=== PATIENT | male | born 1995 | race African-American/Black ===

== ENCOUNTER 2016-09-21 19:58 | Emergency (ER) | payer SELFPAY ==
[2016-09-21 20:00] VITALS: BP 129/72; PULSE 55; RESP 16; TEMP 98.1; O2SAT 98
--- NOTE | 2016-09-21 21:08 | PD ---
HPI Chief Complaint: Musculoskeletal Complaint Time Seen by Provider: 21:06 Travel History International Travel<30 days: No Contact w/Intl Traveler<30days: No Traveled to known affect area: No History of Present Illness HPI 21-year-old male presents to the emergency department for evaluation of bilateral leg pain and a painless lesion on his tongue. Patient states he just noticed it. States that he has been sexually active but in the past but not for "quite some time." Denies any rash. No recent illnesses, fever, chills. No new activity or work out to cause the muscle soreness. He has no other symptoms to report. [facility] Past Medical History Medical History: Denies Significant Hx Diminished Hearing: No Seizures: Yes (LAST SEIZURE WAS 4-5 YEARS AGO ) Tetanus Vaccination: < 5 Years Past Surgical History Surgical History: No Previous Surgery Social History Alcohol Use: No Tobacco Use: No Substance Use: No Allergies-Medications (Allergen,Severity, Reaction): Coded Allergies: No Known Allergies (Unverified , 09/21/16) Reported Meds & Prescriptions Reported Meds & Active Scripts Active No Active Prescriptions or Reported Medications Review of Systems Except as stated in HPI: all other systems reviewed are Neg Physical Exam Narrative GENERAL: Well-nourished, well-developed male patient ambulatory with a nonantalgic gait no acute distress SKIN: Focused skin assessment warm/dry. HEAD: Normocephalic. ENT: Mucosa pink and moist. No erythema or exudates. No uvular edema. No uvular , palatal, or tonsillar deviation. Airway patent. Nasal turbinates appear normal without nasal blood, purulent drainage or septal hematoma. There is a oblong-shaped lesion approximately 1 cm in diameter on the right lateral aspect of the tongue. The center is depressed and the borders raised. It is painless. EYES: No scleral icterus. No injection or drainage. NECK: Supple, trachea midline. No JVD or lymphadenopathy. CARDIOVASCULAR: Regular rate and rhythm without murmurs, gallops, or rubs. RESPIRATORY: Breath sounds equal bilaterally. No accessory muscle use. GASTROINTESTINAL: Abdomen soft, non-tender, nondistended. MUSCULOSKELETAL: No cyanosis, or edema. No erythema or edema. Full range of motion all extremities. Distal pulses are palpable. BACK: Nontender without obvious deformity. No CVA tenderness. Data Data Last Documented VS Vital Signs Date Time Temp Pulse Resp B/P Pulse Ox O2 Delivery O2 Flow Rate FiO2 09/21/16 20:00 98.1 55 16 129/72 98 Room Air Orders Penicillin G Benzathine Inj (Bicillin L- (09/21/16 21:15) Rapid Plasmin Reagin Screen (09/21/16 21:04) Labs Laboratory Tests Test 09/21/16 21:18 Rapid Plasma Reagin NON-REACTIVE MDM Medical Decision Making Medical Screen Exam Complete: Yes Emergency Medical Condition: Yes Medical Record Reviewed: Yes Differential Diagnosis Syphilis versus acanthus ulcer versus trauma to the tongue Dehydration versus muscle strain versus viral syndrome Narrative Course 21-year-old male presents to emergency department for evaluation. Patient has a painless lesion on his tongue is having lower extremity joint pain. This is concerning for syphilis and RPR is sent. Patient will be treated here regardless. I have encouraged him to maintain adequate oral hydration and utilizes, prophylaxis. He is made her that we will call him with any positive results. He agrees to return immediately with any acute worsening of symptoms Diagnosis Primary Impression: Oral lesion Additional Impression: Leg pain, bilateral Referrals: [facility] Patient Instructions: General Instructions, Syphilis (ED) Additional Instructions: Lab work has been drawn today to testing for syphilis. If it is positive he will be contacted You have been treated today Follow-up with a primary care provider Return immediately with any acute worsening symptoms Med/Other Pt SpecificInfo: No Change to Meds Scripts No Active Prescriptions or Reported Meds Disposition: 01 DISCHARGE HOME Condition: Stable Susana Ahn STEFAN September 21, 2016 21:07
[2016-09-21] MEDS ORDERED: PENICILLIN G BENZATHINE 2,400,000 UNITS/4 ML SYRINGE IM ONE (21:15)
== END 2016-09-21 22:03 | disposition home or self-care (01) ==
LOC: NEPK 19:58
DX: K13.70 Unspecified lesions of oral mucosa (principal); M79.604 Pain in right leg; M79.605 Pain in left leg
CPT/HCPCS: 86592; 96372; 99283; J0561

== ENCOUNTER 2017-02-09 13:36 | Emergency (ER) | payer MEDICAID, OTHER ==
[~2017-02-09] VITALS: Ht 180.3 cm; Wt 65.0 kg
[2017-02-09 14:12] VITALS: BP 142/83; PULSE 79; RESP 18; TEMP 98.3; O2SAT 100
[2017-02-09] MEDS ORDERED: OXCA150T PO (14:17)
--- NOTE | 2017-02-09 14:41 | PD ---
HPI Chief Complaint: Seizure Time Seen by Provider: 14:24 Travel History International Travel<30 days: No Contact w/Intl Traveler<30days: No Traveled to known affect area: No History of Present Illness HPI This patient has history of epilepsy and was on seizure medication from eighth grade through 11th grade. He stopped taking his twice a day Trileptal in the 11th grade and hasn't had a seizure until today. He was in the computer lab at [facility] and had a witnessed seizure activity. He remained seated in the chair so there was no fall or injury. Paramedics were called and brought him in. Accu-Chek normal. At this point he feels improved. He was a little bit groggy when he awoke. Severity was moderate. Duration 1 minute. No alleviating factors. There were no exacerbating factors PFSH Past Medical History Diminished Hearing: No Seizures: Yes (LAST SEIZURE WAS 4-5 YEARS AGO ) ?: Not Social History Alcohol Use: No Tobacco Use: No Substance Use: Yes (THC often) Allergies-Medications (Allergen,Severity, Reaction): Coded Allergies: No Known Allergies (Unverified , 09/21/16) Reported Meds & Prescriptions Reported Meds & Active Scripts Active Reported Oxcarbazepine 150 Mg Tab 150 Mg PO BID Review of Systems General / Constitutional: No: Fever Eyes: No: Visual changes HENT: No: Headaches Cardiovascular: No: Chest Pain or Discomfort Respiratory: No: Shortness of Breath Gastrointestinal: No: Abdominal Pain Genitourinary: No: Dysuria Musculoskeletal: No: Pain Skin: No Rash Neurologic: Positive: Seizures, No: Weakness Psychiatric: No: Depression Endocrine: No: Polydipsia Hematologic/Lymphatic: No: Easy Bruising Physical Exam Narrative GENERAL: Well-nourished, well-developed patient in no apparent distress. SKIN: Focused skin assessment reveals no rash and nodules. Skin is Warm and dry. HEAD: Atraumatic. Normocephalic. EYES: Pupils equal and round. No scleral icterus. No injection or drainage. ENT: No nasal bleeding or discharge. Mucous membranes pink and moist. Small abrasion to the right side of tongue NECK: Trachea midline. No JVD. No midline tenderness CARDIOVASCULAR: Regular rate and rhythm. No murmur appreciated. RESPIRATORY: No accessory muscle use. Clear to auscultation. Breath sounds equal bilaterally. GASTROINTESTINAL: Abdomen soft, non-tender, nondistended. Hepatic and splenic margins not palpable. MUSCULOSKELETAL: No obvious deformities. No clubbing. No cyanosis. No edema. NEUROLOGICAL: Awake and alert. No obvious cranial nerve deficits. Motor grossly within normal limits. Normal speech. PSYCHIATRIC: Appropriate mood and affect; insight and judgment normal. Data Data Last Documented VS Vital Signs Date Time Temp Pulse Resp B/P (MAP) Pulse Ox O2 Delivery O2 Flow Rate FiO2 02/09/17 14:13 77 18 99 Room Air 02/09/17 14:12 98.3 142/83 (102) Orders Orders Complete Blood Count With Diff (02/09/17 14:31) Basic Metabolic Panel (Bmp) (02/09/17 14:31) Iv Access Insert/Monitor (02/09/17 14:31) Sodium Chloride 0.9% Flush (Ns Flush) (02/09/17 14:45) Lorazepam (Ativan) (02/09/17 14:45) Oxcarbazepine (Trileptal) (02/09/17 14:45) Labs Laboratory Tests Test 02/09/17 14:44 White Blood Count 4.2 TH/MM3 Red Blood Count 4.34 MIL/MM3 Hemoglobin 13.8 GM/DL Hematocrit 41.6 % Mean Corpuscular Volume 95.7 FL Mean Corpuscular Hemoglobin 31.7 PG Mean Corpuscular Hemoglobin Concent 33.1 % Red Cell Distribution Width 13.6 % Platelet Count 202 TH/MM3 Mean Platelet Volume 9.9 FL Neutrophils (%) (Auto) 59.8 % Lymphocytes (%) (Auto) 28.0 % Monocytes (%) (Auto) 9.5 % Eosinophils (%) (Auto) 1.6 % Basophils (%) (Auto) 1.1 % Neutrophils # (Auto) 2.5 TH/MM3 Lymphocytes # (Auto) 1.2 TH/MM3 Monocytes # (Auto) 0.4 TH/MM3 Eosinophils # (Auto) 0.1 TH/MM3 Basophils # (Auto) 0.0 TH/MM3 CBC Comment DIFF FINAL Differential Comment Blood Urea Nitrogen 9 MG/DL Creatinine 0.96 MG/DL Random Glucose 77 MG/DL Calcium Level 9.2 MG/DL Sodium Level 137 MEQ/L Potassium Level 4.2 MEQ/L Chloride Level 105 MEQ/L Carbon Dioxide Level 24.3 MEQ/L Anion Gap 8 MEQ/L Estimat Glomerular Filtration Rate 120 ML/MIN MDM Medical Decision Making Medical Screen Exam Complete: Yes Emergency Medical Condition: Yes Medical Record Reviewed: Yes Differential Diagnosis Recurrent seizure, epilepsy, tremor Narrative Course I have reviewed the patient's electronic medical record. Of course there is no way to be 100% certain since I was not there at the time of the event but it certainly is a convincing story for having a seizure. He did have tongue injury as well. Given his history I'm recommending we restart him on Trileptal Will start him on 300 twice a day with the expectation he may require higher dose at some point in the future. He should follow-up with neurology I will observe him for while to make sure he does not have recurrent event He is neurologically intact I gave him 0.5 mg Ativan pill CBC is normal Metabolic profile is normal Accu-Chek normal I gave him a Trileptal dose of 300 I observed him for 3 solid hours and he remains asymptomatic. Father is here to take him home. Diagnosis Primary Impression: Seizure Additional Instructions: The patient was advised to follow up with neurologist and return if they worsen. Med/Other Pt SpecificInfo: Prescription(s) given Disposition: DISCHARGE HOME Condition: Stable Melvin Delaney MD Feb 09, 2017 14:41
[2017-02-09] MEDS ORDERED: SODIUM CHLORIDE 0.9% FLUSH 10 ML FLUSH IVF PRN (14:45)
[2017-02-09] MEDS ORDERED: OXcarbazepine 300 MG TAB PO ONE (14:45)
[2017-02-09] MEDS ORDERED: LORazepam 0.5 MG TAB PO ONE (14:45)
[2017-02-09 15:13] LABS: AUTOMATED NEUTROPHIL # 2.5 TH/MM3 (1.8-7.7); BASOPHIL % 1.1 % (0.0-2.0); EOSINOPHIL # 0.1 TH/MM3 (0-0.4); EOSINOPHIL % 1.6 % (0.0-4.0); HEMATOCRIT 41.6 % (39.0-51.0); HEMO FLAGS DIFF FINAL; LYMPHOCYTE # 1.2 TH/MM3 (1.0-4.8); MEAN CELL VOLUME 95.7 FL (80.0-100.0); MEAN CORPUSCULAR HEMOGLOBIN 31.7 PG (27.0-34.0); MEAN CORPUSCULAR HGB CONC 33.1 % (32.0-36.0); MONO % 9.5 % (0.0-8.0); NEUT % 59.8 % (16.0-70.0); PLATELET COUNT 202 TH/MM3 (150-450); RED BLOOD COUNT 4.34 MIL/MM3 (4.50-5.90); RED CELL DISTRIBUTION WIDTH 13.6 % (11.6-17.2); WHITE BLOOD COUNT 4.2 TH/MM3 (4.0-11.0)
[2017-02-09 15:43] LABS: BICARBONATE 24.3 MEQ/L (21.0-32.0); POTASSIUM 4.2 MEQ/L (3.5-5.1)
--- NOTE | 2017-02-10 12:03 | EKG ---
Date Performed: 02/09/2017 Time Performed: 14:21:45 PTAGE: 21 years EKG: Sinus rhythm POSSIBLE RIGHT VENTRICULAR CONDUCTION DELAY EARLY REPOLARIZATION BORDERLINE ECG NO PREVIOUS TRACING DOCTOR: Hay Morales Interpretating Date/Time 02/10/2017 12:01:23
== END 2017-02-09 17:41 | disposition home or self-care (01) ==
LOC: NEPD 13:36
DX: R56.9 Unspecified convulsions (principal)
CPT/HCPCS: 80048; 85025; 93005; 99284

== ENCOUNTER 2017-03-20 13:10 | Inpatient (IN) | payer OTHER ==
[~2017-03-20] VITALS: Ht 180.3 cm; Wt 78.0 kg
[~2017-03-20 13:10] MED LIST: OXCA150T PO
[2017-03-20 13:21] VITALS: BP 131/87; PULSE 72; RESP 16; TEMP 97.7; O2SAT 99
[2017-03-20 13:23] VITALS: O2SAT 99
[2017-03-20] MEDS ORDERED: LORazepam 2 MG/ML VIAL ONE ×2 (13:25)
[2017-03-20] MEDS ORDERED: SODIUM CHLORIDE 0.9% FLUSH 10 ML FLUSH IVF PRN ×4 (13:30)
[2017-03-20] MEDS ORDERED: SODIUM CHLOR 0.9% 1000 ML INJ 1,000 ML IV ONE ×2 (13:30)
[2017-03-20] MEDS ORDERED: FOSPHENYTOIN INJ 1,000 MGPE in SODIUM CHLORIDE 0.9% INJ 50 ML IV ONE ×4 (13:45)
[2017-03-20 14:17] LABS: AUTOMATED NEUTROPHIL # 4.3 TH/MM3 (1.8-7.7); BASOPHIL % 0.4 % (0.0-2.0); EOSINOPHIL % 0.5 % (0.0-4.0); HEMATOCRIT 48.1 % (39.0-51.0); HEMOGLOBIN 15.4 GM/DL (13.0-17.0); LYMPH % 33.9 % (9.0-44.0); LYMPHOCYTE # 2.7 TH/MM3 (1.0-4.8); MEAN CELL VOLUME 101.8 FL (80.0-100.0); MEAN CORPUSCULAR HEMOGLOBIN 32.6 PG (27.0-34.0); MEAN PLATELET VOLUME 9.8 FL (7.0-11.0); MONO % 11.3 % (0.0-8.0); MONOCYTE # 0.9 TH/MM3 (0-0.9); NEUT % 53.9 % (16.0-70.0); PLATELET COUNT 200 TH/MM3 (150-450); RED BLOOD COUNT 4.73 MIL/MM3 (4.50-5.90); RED CELL DISTRIBUTION WIDTH 14.8 % (11.6-17.2)
[2017-03-20 14:38] LABS: BICARBONATE 14.9 MEQ/L (21.0-32.0); CALCIUM 10.6 MG/DL (8.5-10.1); CREATININE 1.24 MG/DL (0.60-1.30)
--- NOTE | 2017-03-20 15:12 | RADRPT ---
EXAM DATE/TIME: 03/20/2017 14:49 [place] COMPARISON: No previous studies available for comparison. INDICATIONS : Possible seizure today. RADIATION DOSE: 56.35 CTDIvol (mGy) MEDICAL HISTORY : Seizures. SURGICAL HISTORY : None. ENCOUNTER: Initial ACUITY: 1 day PAIN SCALE: Non-responsive LOCATION: Bilateral head TECHNIQUE: Multiple contiguous axial images were obtained of the head. Using automated exposure control and adj ustment of the mA and/or kV according to patient size, radiation dose was kept as low as reasonably a chievable to obtain optimal diagnostic quality images. DICOM format image data is available electro nically for review and comparison. FINDINGS: CEREBRUM: The ventricles are normal for age. No evidence of midline shift, mass lesion, hemorrhage or acute in farction. No extra-axial fluid collections are seen. POSTERIOR FOSSA: The cerebellum and brainstem are intact. The 4th ventricle is midline. The cerebellopontine angle i s unremarkable. EXTRACRANIAL: The visualized portion of the orbits is intact. SKULL: The calvaria is intact. No evidence of skull fracture. CONCLUSION: No acute disease. Maurizio Guaman MD on March 20, 2017 at 15:09 Board Certified Radiologist. This report was verified electronically.
--- NOTE | 2017-03-20 15:12 | PD ---
HPI Chief Complaint: Seizure Time Seen by Provider: 13:13 Travel History International Travel<30 days: No Contact w/Intl Traveler<30days: No Traveled to known affect area: No History of Present Illness HPI 21 yo M arrives by EMS. He was witnessed to have had a seizure apathy and [place]. It lasted about 2 minutes. it was generalized clonic tonic activity. Postictal state observed. Vital signs normal on scene with normal blood glucose. Patient has a history of seizures with most recent seizure about 6 weeks prior. He is currently not taking any antiepileptics however was previously. He does not recall the name of the antiepileptic agent. [facility] Past Medical History Diminished Hearing: No Seizures: Yes Tetanus Vaccination: Unknown Influenza Vaccination: No Past Surgical History Surgical History: No Previous Surgery Social History Alcohol Use: No Tobacco Use: No Substance Use: Yes (THC often) Allergies-Medications (Allergen,Severity, Reaction): Coded Allergies: No Known Allergies (Unverified Allergy, Unknown, 03/20/17) Reported Meds & Prescriptions Reported Meds & Active Scripts Active Reported Oxcarbazepine 150 Mg Tab 150 Mg PO BID Review of Systems Except as stated in HPI: all other systems reviewed are Neg General / Constitutional: No: Fever Physical Exam Narrative GENERAL: 21-year-old male well-nourished well-developed began full sentences no acute distress SKIN: Focused skin assessment warm/dry. HEAD: Atraumatic. Normocephalic. EYES: Pupils equal and round. No scleral icterus. No injection or drainage. ENT: No nasal bleeding or discharge. Mucous membranes pink and moist. NECK: Trachea midline. No JVD. CARDIOVASCULAR: Regular rate and rhythm. No murmur appreciated. RESPIRATORY: No accessory muscle use. Clear to auscultation. Breath sounds equal bilaterally. GASTROINTESTINAL: Abdomen soft, non-tender, nondistended. Hepatic and splenic margins not palpable. MUSCULOSKELETAL: No obvious deformities. No clubbing. No cyanosis. No edema. NEUROLOGICAL: Awake and alert. No obvious cranial nerve deficits. Motor grossly within normal limits. Normal speech. PSYCHIATRIC: Appropriate mood and affect; insight and judgment normal. Data Data Last Documented VS Vital Signs Date Time Temp Pulse Resp B/P (MAP) Pulse Ox O2 Delivery O2 Flow Rate FiO2 03/20/17 15:27 77 16 134/85 (101) 98 Room Air 03/20/17 13:21 97.7 Orders Orders Complete Blood Count With Diff (03/20/17 13:21) Basic Metabolic Panel (Bmp) (03/20/17 13:21) Electrocardiogram (03/20/17 ) Ecg Monitoring (03/20/17 13:21) Iv Access Insert/Monitor (03/20/17 13:21) Oximetry (03/20/17 13:21) Sodium Chloride 0.9% Flush (Ns Flush) (03/20/17 13:30) Ct Brain W/O Iv Contrast(Rout) (03/20/17 13:21) Lorazepam Inj (Ativan Inj) (03/20/17 13:25) Alcohol (Ethanol) (03/20/17 13:30) Drug Screen, Random Urine (03/20/17 13:30) Sodium Chlor 0.9% 1000 Ml Inj (Ns 1000 M (03/20/17 13:30) Sodium Chloride 0.9% Flush (Ns Flush) (03/20/17 13:30) Fosphenytoin Inj (Cerebyx Inj) (03/20/17 13:45) Admit Order (Ed Use Only) (03/20/17 ) Tie Knitter Helper / Telemetry HARLEY.Q8H (03/20/17 16:00) Vital Signs (Adult) Q4H (03/20/17 16:00) Diet Heart Healthy (03/20/17 Dinner) Activity Oob With Assistance (03/20/17 16:00) Labs Laboratory Tests Test 03/20/17 13:30 White Blood Count 8.0 TH/MM3 Red Blood Count 4.73 MIL/MM3 Hemoglobin 15.4 GM/DL Hematocrit 48.1 % Mean Corpuscular Volume 101.8 FL Mean Corpuscular Hemoglobin 32.6 PG Mean Corpuscular Hemoglobin Concent 32.0 % Red Cell Distribution Width 14.8 % Platelet Count 200 TH/MM3 Mean Platelet Volume 9.8 FL Neutrophils (%) (Auto) 53.9 % Lymphocytes (%) (Auto) 33.9 % Monocytes (%) (Auto) 11.3 % Eosinophils (%) (Auto) 0.5 % Basophils (%) (Auto) 0.4 % Neutrophils # (Auto) 4.3 TH/MM3 Lymphocytes # (Auto) 2.7 TH/MM3 Monocytes # (Auto) 0.9 TH/MM3 Eosinophils # (Auto) 0.0 TH/MM3 Basophils # (Auto) 0.0 TH/MM3 CBC Comment DIFF FINAL Differential Comment Blood Urea Nitrogen 9 MG/DL Creatinine 1.24 MG/DL Random Glucose 110 MG/DL Calcium Level 10.6 MG/DL Sodium Level 144 MEQ/L Potassium Level 3.6 MEQ/L Chloride Level 108 MEQ/L Carbon Dioxide Level 14.9 MEQ/L Anion Gap 21 MEQ/L Estimat Glomerular Filtration Rate 89 ML/MIN Urine Opiates Screen NEG Urine Barbiturates Screen NEG Urine Amphetamines Screen NEG Urine Benzodiazepines Screen NEG Urine Cocaine Screen NEG Urine Cannabinoids Screen POS Ethyl Alcohol Level LESS THAN 3 MG/DL MDM Medical Decision Making Medical Screen Exam Complete: Yes Emergency Medical Condition: Yes Medical Record Reviewed: Yes Differential Diagnosis seizure, epilepsy, drug abuse, alcohol abuse, electronimbalance Narrative Course CBC & BMP Diagram 03/20/17 13:30 Calcium Level 10.6 H Last [address] 03/20/17 1321 Signed Impressions: Service Date/Time: Monday, March 20, 2017 14:49 - CONCLUSION: No acute disease. Maurizio Guaman MD Drug screen is positive for cannabinoids The alcohol level is less than 3 The patient had a generalized clonic tonic seizure shortly after ER arrival. He received 2 mg IV Ativan. He then received a gram of Cerebyx. He'll be admitted for ongoing care including monitoring and neurology evaluation. D/w Dr Sarabia. Critical Care Narrative Aggregate critical care time was 35 minutes. Time to perform other separately billable procedures was not included in the critical care time. My time did not include minutes spent treating any other patients simultaneously or on activities that did not directly contribute to the patient's treatment. The services I provided to this patient were to treat and/or prevent clinically significant deterioration that could result in: Respiratory arrest, status epilepticus I provided critical care services requiring my management, as noted below: Chart data review, documentation time, medication orders and management, vital sign assessments/reviewing monitor data, ordering and reviewing lab tests, ordering and interpreting/reviewing x-rays and diagnostic studies, care of the patient and discussion of the patient with the admitting physicians. Diagnosis Primary Impression: Seizure Admitting Information Admitting Physician Requests: Observation Earle Bergeron MD Mar 20, 2017 15:12
[2017-03-20 15:27] VITALS: BP 134/85; PULSE 77; RESP 16; O2SAT 98
[2017-03-20] MEDS ORDERED: NALOXONE HCL 0.4 MG/ML AMP IV PUSH PRN ×2 (16:15)
[2017-03-20] MEDS ORDERED: SODIUM CHLORIDE 0.9% FLUSH 10 ML FLUSH IV FLUSH PRN ×2 (16:15)
[2017-03-20] MEDS ORDERED: LORazepam 2 MG/ML VIAL IV PUSH PRN ×2 (16:15)
[2017-03-20] MEDS: SODIUM CHLOR 0.9% 1000 ML INJ 1,000 ML IV SCH ×2 (16:38)
--- NOTE | 2017-03-20 16:59 | HHI.HP ---
HPI Service [facility] Primary Care Physician No Primary Care Physician Admission Diagnosis Recurrent Seizure Diagnoses: Chief Complaint: seizure Travel History International Travel<30 Days: No Contact w/Intl Traveler <30 Da: No Traveled to Known Affected Are: No History of Present Illness This is a 21 year old -Azerbaijani male patient with past medical history which includes seizure disorder. Patient reports he had his first seizure when he was in 8th grade and was started on seizure medications believed to be Trileptal which he took up until the 11th grade and had no further seizures. Patient reports he stopped taking his Trileptal in the 11th grade and has not taken any medications for seizures since that time. Patient does report he had a seizure approximately one month ago. In review of medical records patient was seen in the ER at 02/09/2017 for possible seizure and discharged home with instructions to follow-up with neurology. Patient reports you tries to find a neurologist but has been unable to do so. Patient also has not been on medications for seizures. Patient had witnessed seizure today while in the computer lab at [facility] in the computer lab. He remained seated in the chair so there was no fall or injury. Paramedics were called and brought him into [facility] ER. Per ER MD patient had a second witnessed seizure while in the ER duration 1 minute. seizure activity resolved after Ativan was given IV. Blood glucose on arrival 110. Patient deepak appear post-ictal and endorses feeling groggy. Patient reports he did have the feeling that a mild headache was starting just prior to the seizure activity. Patient denies lose of bowel or bladder control. Review of Systems Neurologic: COMPLAINS OF: Headache, Seizures Except as stated in HPI: all other systems reviewed are Neg Past Family Social History Past Medical History seizure disorder Past Surgical History none Reported Medications none Allergies: Coded Allergies: No Known Allergies (Unverified Allergy, Unknown, 03/20/17) Active Ordered Medications Current Medications Medications (Trade) Dose Ordered Sig/Quincy Route Start Time Stop Time Status Last Admin Sodium Chloride 1,000 ml @ 100 mls/hr Q10H IV 03/20/17 16:03 (NS Flush) 2 ml UNSCH PRN IV FLUSH 03/20/17 16:15 (NS Flush) 2 ml BID IV FLUSH 03/20/17 21:00 (Narcan Inj) 0.4 mg UNSCH PRN IV PUSH 03/20/17 16:15 (Ativan Inj) 1 mg Q15M PRN IV PUSH 03/20/17 16:15 Family History Grandmother positive for lung Ca Social History Lives on [place] at [facility] from [place] denies tobacco use rare ETOH use last drank over 2 months ago illicit drug use: marijuana Physical Exam Vital Signs Vital Signs Date Time Temp Pulse Resp B/P (MAP) Pulse Ox O2 Delivery O2 Flow Rate FiO2 03/20/17 15:27 77 16 134/85 (101) 98 Room Air 03/20/17 13:23 99 Room Air 03/20/17 13:21 97.7 72 16 131/87 (102) 99 Room Air Physical Exam GENERAL: This is a well-nourished, well-developed patient, in no apparent distress. SKIN: No rashes, ecchymoses or lesions. Cool and dry. HEAD: Atraumatic. Normocephalic. No temporal or scalp tenderness. EYES: Extraocular motions intact. No scleral icterus. No injection or drainage. CARDIOVASCULAR: Regular rate and rhythm RESPIRATORY: Clear to auscultation. Breath sounds equal bilaterally. GASTROINTESTINAL: Abdomen soft, non-tender, nondistended. No hepato-splenomegaly , or palpable masses. No guarding. MUSCULOSKELETAL: Extremities without clubbing, cyanosis, or edema. No joint tenderness, effusion, or edema noted. No calf tenderness. Negative Homans sign bilaterally. NEUROLOGICAL: Groggy/post-ictal. No focal deficits noted. Motor and sensory grossly within normal limits. Five out of 5 muscle strength in all muscle groups. Normal speech. Laboratory Laboratory Tests Test 03/20/17 13:30 White Blood Count 8.0 Red Blood Count 4.73 Hemoglobin 15.4 Hematocrit 48.1 Mean Corpuscular Volume 101.8 Mean Corpuscular Hemoglobin 32.6 Mean Corpuscular Hemoglobin Concent 32.0 Red Cell Distribution Width 14.8 Platelet Count 200 Mean Platelet Volume 9.8 Neutrophils (%) (Auto) 53.9 Lymphocytes (%) (Auto) 33.9 Monocytes (%) (Auto) 11.3 Eosinophils (%) (Auto) 0.5 Basophils (%) (Auto) 0.4 Neutrophils # (Auto) 4.3 Lymphocytes # (Auto) 2.7 Monocytes # (Auto) 0.9 Eosinophils # (Auto) 0.0 Basophils # (Auto) 0.0 CBC Comment DIFF FINAL Differential Comment Blood Urea Nitrogen 9 Creatinine 1.24 Random Glucose 110 Calcium Level 10.6 Sodium Level 144 Potassium Level 3.6 Chloride Level 108 Carbon Dioxide Level 14.9 Anion Gap 21 Estimat Glomerular Filtration Rate 89 Urine Opiates Screen NEG Urine Barbiturates Screen NEG Urine Amphetamines Screen NEG Urine Benzodiazepines Screen NEG Urine Cocaine Screen NEG Urine Cannabinoids Screen POS Ethyl Alcohol Level LESS THAN 3 Result Diagram: 03/20/17 1330 03/20/17 1330 Imaging Last Impressions Head CT 03/20/17 1321 Signed Impressions: Service Date/Time: Monday, March 20, 2017 14:49 - CONCLUSION: No acute disease. MD Isabel Jefferson VTE Risk Assessment Captodd VTE Risk Assessment: No/Low Risk (score <= 1) Caprini Risk Assessment Model Point Value = 1 Point Value = 2 Point Value = 3 Point Value = 5 Age 41-60 Minor surgery BMI > 25 kg/m2 Swollen legs Varicose veins or History of unexplained or recurrent spontaneous Oral contraceptives or hormone replacement Sepsis (< 1 month) Serious lung disease, including pneumonia (< 1 month) Abnormal pulmonary function Acute myocardial infarction Congestive heart failure (< 1 month) History of inflammatory bowel disease Medical patient at bed rest Age 61-74 Arthroscopic surgery Major open surgery (> 45 min) Laparoscopic surgery (> 45 min) Malignancy Confined to bed (> 72 hours) Immobilizing plaster cast Central venous access Age >= 75 History of VTE Family history of VTE Factor V Leiden Prothrombin [id number] Lupus anticoagulant Anticardiolipin antibodies Elevated serum homocysteine Heparin-induced thrombocytopenia Other congenital or acquired thrombophilia Stroke (< 1 month) Elective arthroplasty Hip, pelvis, or leg fracture Acute spinal cord injury (< 1 month) Prophylaxis Regimen Total Risk Factor Score Risk Level Prophylaxis Regimen 0-1 Low Early ambulation 2 Moderate Order ONE of the following: *Sequential Compression Device (SCD) *Heparin 5000 units SQ BID 3-4 Higher Order ONE of the following medications: *Heparin 5000 units SQ TID *Enoxaparin/Lovenox 40 mg SQ daily (WT < 150 kg, CrCl > 30 mL/min) *Enoxaparin/Lovenox 30 mg SQ daily (WT < 150 kg, CrCl > 10-29 mL/min) *Enoxaparin/Lovenox 30 mg SQ BID (WT < 150 kg, CrCl > 30 mL/min) AND/OR *Sequential Compression Device (SCD) 5 or more Highest Order ONE of the following medications: *Heparin 5000 units SQ TID (Preferred with Epidurals) *Enoxaparin/Lovenox 40 mg SQ daily (WT < 150 kg, CrCl > 30 mL/min) *Enoxaparin/Lovenox 30 mg SQ daily (WT < 150 kg, CrCl > 10-29 mL/min) *Enoxaparin/Lovenox 30 mg SQ BID (WT < 150 kg, CrCl > 30 mL/min) AND *Sequential Compression Device (SCD) Assessment and Plan Problem List: (1) Seizure ICD Code: R56.9 - Unspecified convulsions Status: Acute Assessment and Plan Seizure Fosphenytoin given in ER Ativan as needed for seizure activity Consult neurology Head CT reviewed and reveals: No acute disease EEG pending Seizure precautions Start Dilantin 100 mg Q8H with Dilantin level in AM CBC and CMP in AM DVT prophylaxis SCDs- avoid chemical DVT prophylaxis due to seizure activity Discussed with patient, sister at bedside, nurse and Dr. Sarabia Physician Certification 2 Midnight Certification Type: Admission for Inpatient Services Order for Inpatient Services The services are ordered in accordance with Medicare regulations or non- Medicare payer requirements, as applicable. In the case of services not specified as inpatient-only, they are appropriately provided as inpatient services in accordance with the 2-midnight benchmark. Estimated LOS (days): 3 days is the estimated time the patient will need to remain in the hospital, assuming treatment plan goals are met and no additional complications. Post-Hospital Plan: Home Dinora Dunham Mar 20, 2017 16:59
[2017-03-20 17:30] VITALS: BP 131/83; PULSE 71; RESP 15; O2SAT 98
[2017-03-20 19:00] VITALS: BP 129/60; PULSE 61; RESP 16; TEMP 98.4; O2SAT 97
--- NOTE | 2017-03-20 20:44 | MB ---
cc: LAURA RESENDIZ MD DATE OF CONSULTATION 03/20/17 REASON FOR CONSULTATION Seizures HISTORY OF PRESENT ILLNESS Mr. Schwartz is a 21-year-old -Sammarinese male who presented to the [facility] emergency room because of a breakthrough seizure. The patient is asleep during the encounter status post being given Ativan. Sister is at bedside. The history is obtained from medical records, sister and a phone conference with his mother. He has from [place] and he is studying here in [employer]. The patient has had his first seizure when he was in high as per mother and first medication was trileptal. Hr took it for three years, seizure- free and then he stopped taking this medication. As per the sister, the patient has had a seizure one month ago. The patient did not follow up with neurology, currently on no anti-seizure medication. The patient had a witnessed seizure today while in the computer lab in the [facility]. During the episode, he remained seated so there was no fall or injury. Per the emergency room physician, he had a second witnessed seizure while in the emergency room, lasted almost a minute and Ativan IV was given. The blood glucose on arrival was 110, blood pressure 131/87, heart rate 72, temperature 97.7 and pulse ox 99. There was no reported loss of bowel or bladder control. During the phone conference with the mother, she denied history of intra intrauterine infection, abnormal vagina delivery but she states that he was in the intensive care for a week after he was born because of fluctuation in his blood sugar. She does not know what the diagnosis was. Denies history of meningitis or encephalitis. Denied history of delayed milestones, although she states that he has some "nerve injury" in his face after the ICU admission when he was an infant. No family member with seizures. No history of significant head trauma. REVIEW OF SYSTEMS 12-point review of systems negative except what is stated in HPI. PAST MEDICAL HISTORY Seizure disorder. PAST SURGICAL HISTORY Noncontributory MEDICATIONS None. ALLERGIES No known allergies. FAMILY HISTORY Noncontributory SOCIAL HISTORY Denies tobacco, rare ethanol use, illicit drug positive for marijuana. PHYSICAL EXAMINATION GENERAL: The patient is sleepy but arousable secondary to receiving 1 mg Ativan. HEENT: Atraumatic, normocephalic. Intact hearing. Intact vision. CARDIOVASCULAR: Regular rate and rhythm. RESPIRATORY: Clear to auscultation. No wheezes. MUSCULOSKELETAL: Moves extremities without clubbing or cyanosis. NEUROLOGIC: The patient is sleepy. We will defer the assessment after he wakes up, he moves extremities equally and when he turns in bed no sign of facial asymmetry. LABORATORY DATA WBC eight, hemoglobin 15.4, MCV 101.8, platelet count 200. Sodium 144, potassium 3.6, anion gap 21, random glucose 110, calcium 10.6. UDS is positive for cannabinoids. IMAGING STUDIES - Head CT scan without contrast did not reveal any acute intracranial pathology. DIAGNOSTIC IMPRESSION 1. Breakthrough seizure. 2. History of seizure disorder since childhood, currently on no anti-seizure medication. 3. Neuro checks q. four hourly. 4. EEG 5. Dilantin 100 mg three times daily 6. Obtain Dilantin level next a.m. 7. Seizure precautions. 8. DVT prophylaxis with SCDs 9. Discussed the case with the patient's sister and mother through a phone conference. Thank you for the opportunity to participate in the care of your patient. MD RIGOBERTO Colvin/ /8:21 PM /8:34 PM [facility]
--- NOTE | 2017-03-20 20:44 | MB ---
cc: LAURA RESENDIZ MD DATE OF CONSULTATION 03/20/17 REASON FOR CONSULTATION Seizures HISTORY OF PRESENT ILLNESS Mr. Schwartz is a 21-year-old -Panamanian male who presented to the [facility] emergency room because of a breakthrough seizure. The patient is asleep during the encounter status post being given Ativan. Sister is at bedside. The history is obtained from medical records, sister and a phone conference with his mother. He has from [place] and he is studying here in [employer]. The patient has had his first seizure when he was in high as per mother and first medication was trileptal. Hr took it for three years, seizure- free and then he stopped taking this medication. As per the sister, the patient has had a seizure one month ago. The patient did not follow up with neurology, currently on no anti-seizure medication. The patient had a witnessed seizure today while in the computer lab in the [facility]. During the episode, he remained seated so there was no fall or injury. Per the emergency room physician, he had a second witnessed seizure while in the emergency room, lasted almost a minute and Ativan IV was given. The blood glucose on arrival was 110, blood pressure 131/87, heart rate 72, temperature 97.7 and pulse ox 99. There was no reported loss of bowel or bladder control. During the phone conference with the mother, she denied history of intra intrauterine infection, abnormal vagina delivery but she states that he was in the intensive care for a week after he was born because of fluctuation in his blood sugar. She does not know what the diagnosis was. Denies history of meningitis or encephalitis. Denied history of delayed milestones, although she states that he has some "nerve injury" in his face after the ICU admission when he was an infant. No family member with seizures. No history of significant head trauma. REVIEW OF SYSTEMS 12-point review of systems negative except what is stated in HPI. PAST MEDICAL HISTORY Seizure disorder. PAST SURGICAL HISTORY Noncontributory MEDICATIONS None. ALLERGIES No known allergies. FAMILY HISTORY Noncontributory SOCIAL HISTORY Denies tobacco, rare ethanol use, illicit drug positive for marijuana. PHYSICAL EXAMINATION GENERAL: The patient is sleepy but arousable secondary to receiving 1 mg Ativan. HEENT: Atraumatic, normocephalic. Intact hearing. Intact vision. CARDIOVASCULAR: Regular rate and rhythm. RESPIRATORY: Clear to auscultation. No wheezes. MUSCULOSKELETAL: Moves extremities without clubbing or cyanosis. NEUROLOGIC: The patient is sleepy. We will defer the assessment after he wakes up, he moves extremities equally and when he turns in bed no sign of facial asymmetry. LABORATORY DATA WBC eight, hemoglobin 15.4, MCV 101.8, platelet count 200. Sodium 144, potassium 3.6, anion gap 21, random glucose 110, calcium 10.6. UDS is positive for cannabinoids. IMAGING STUDIES - Head CT scan without contrast did not reveal any acute intracranial pathology. DIAGNOSTIC IMPRESSION 1. Breakthrough seizure. 2. History of seizure disorder since childhood, currently on no anti-seizure medication. 3. Neuro checks q. four hourly. 4. EEG 5. Dilantin 100 mg three times daily 6. Obtain Dilantin level next a.m. 7. Seizure precautions. 8. DVT prophylaxis with SCDs 9. Discussed the case with the patient's sister and mother through a phone conference. Thank you for the opportunity to participate in the care of your patient. MD RIGOBERTO Colvin/ /8:21 PM /8:34 PM [facility]
[2017-03-20] MEDS ORDERED: SODIUM CHLORIDE 0.9% FLUSH 10 ML FLUSH IV FLUSH SCH ×2 (21:00)
[2017-03-20] MEDS: PHENYTOIN SODIUM 100 MG CAP PO SCH ×2 (23:02)
[2017-03-21] VITALS: BP 114/61; PULSE 66; RESP 16; TEMP 98.3; O2SAT 97
[2017-03-21 02:24] VITALS: PULSE 64
[2017-03-21 04:00] VITALS: BP 122/64; PULSE 66; RESP 16; TEMP 98.4; O2SAT 98
[2017-03-21] MEDS: PHENYTOIN SODIUM 100 MG CAP PO SCH ×2 (05:49)
[2017-03-21] MEDS: SODIUM CHLOR 0.9% 1000 ML INJ 1,000 ML IV SCH ×2 (05:50)
[2017-03-21 08:00] VITALS: BP 110/60; PULSE 65; RESP 18; TEMP 97.7; O2SAT 99
--- NOTE | 2017-03-21 10:15 | HHI.PR ---
Subjective Remarks Patient seen and examined this morning. His vitals are stable and the patient' s afebrile. No overnight events. Wants to go back to school. No further seizures. Denies difficulty breathing or chest pain. Objective Vital Signs Date Time Temp Pulse Resp B/P (MAP) Pulse Ox O2 Delivery O2 Flow Rate FiO2 03/21/17 08:00 97.7 65 18 110/60 (77) 99 03/21/17 04:00 98.4 66 16 122/64 (83) 98 03/21/17 02:24 64 03/21/17 00:00 98.3 66 16 114/61 (78) 97 03/20/17 19:00 98.4 61 16 129/60 (83) 97 03/20/17 18:23 03/20/17 17:30 71 15 131/83 (99) 98 Room Air 03/20/17 15:27 77 16 134/85 (101) 98 Room Air 03/20/17 13:23 99 Room Air 03/20/17 13:21 97.7 72 16 131/87 (102) 99 Room Air I/O 03/20/17 03/20/17 03/20/17 03/21/17 03/21/17 03/21/17 07:00 15:00 23:00 07:00 15:00 23:00 Intake Total 1070 ml 80 ml 1004 ml Balance 1070 ml 80 ml 1004 ml Intake Oral 80 ml 60 ml IV Total 1070 ml 944 ml # Voids 1 Result Diagram: 03/20/17 1330 03/20/17 1330 Imaging Last Impressions Head CT 03/20/17 1321 Signed Impressions: Service Date/Time: Monday, March 20, 2017 14:49 - CONCLUSION: No acute disease. Maurizio Guaman MD Objective Remarks GENERAL: sitting in bed, nad SKIN: Warm and dry. HEAD: Normocephalic. EYES: No scleral icterus. No injection or drainage. NECK: Supple, trachea midline. No JVD or lymphadenopathy. CARDIOVASCULAR: Regular rate and rhythm without murmurs, gallops, or rubs. RESPIRATORY: Breath sounds equal bilaterally. No accessory muscle use. GASTROINTESTINAL: Abdomen soft, non-tender, nondistended. MUSCULOSKELETAL: No cyanosis, or edema. BACK: Nontender without obvious deformity. No CVA tenderness. A/P Problem List: (1) Seizure ICD Code: R56.9 - Unspecified convulsions Status: Acute Assessment and Plan In summary this is a 21-year-old male's patient who is a student at [employer]. He has a medical history significant for seizure disorder for which he was previously on on Trileptal (has been off since the ). He had a witnessed seizure at school and was then brought to [place] ER. He again had a second witnessed seizure while in the ER that resolved with IV Ativan. Drug screen positive for cannabinoids. 1. Seizure: Neurology was consulted. EEG performed and read. Recommend Keppra 500 mg PO BID. Seizure precautions on dc. Fluids: Hep-Lock IV Electrolytes: Within normal limits Nutrition: Regular diet as tolerated DVT prophylaxis, patient is ambulatory Discharge Planning D/C home. FU with PCP and neuro. D.C on keppra after observed for two hours after first dose. Discussed with neuro. Sendy Sahu MD Mar 21, 2017 10:15
--- NOTE | 2017-03-21 11:54 | MG ---
cc: LAURA RESENDIZ Lab No: Date: 03/21/17 Age: 21 Sex: M Race: DATE OF [address] Sarabia MEDICAL HISTORY Seizure activity lasting 2 minutes with postictal state. History of seizure, marijuana use, caffeine and headaches. MEDICATIONS 1. Dilantin. 2. Fosphenytoin. 3. 2 milligrams of Ativan at 13:39 p.m. on 03/20. DESCRIPTION The background activity is 8-9 Hz alpha located posteriorly, bilateral and symmetrical. Superimposed by excess beta activity. Hyperventilation did not change the background rhythm. Photic stimulation did not elicit a driving response. During the recording there was drop out of the background rhythm with replacement slow theta with appearance of sleep spindles. There were no electrographic seizures or epileptiform discharges noted. INTERPRETATION This is a normal awake, drowsy and sleep EEG. Beta activity is a nonspecific finding that may be related to adverse effect of medication like benzos or barbiturates. Absence of electrographic seizures or epileptiform discharges does not rule out the diagnosis of epilepsy. Clinical correlation is recommended. MD RIGOBERTO Colvin/EVELINA /10:08 AM /11:52 AM [facility]
[2017-03-21 12:00] VITALS: BP 109/62; PULSE 68; RESP 16; TEMP 98.2; O2SAT 95
[2017-03-21 12:31] LABS: AUTOMATED NEUTROPHIL # 5.6 TH/MM3 (1.8-7.7); BASOPHIL % 0.5 % (0.0-2.0); EOSINOPHIL % 0.2 % (0.0-4.0); HEMATOCRIT 42.7 % (39.0-51.0); HEMOGLOBIN 14.2 GM/DL (13.0-17.0); LYMPH % 14.4 % (9.0-44.0); MEAN CELL VOLUME 96.7 FL (80.0-100.0); MEAN CORPUSCULAR HEMOGLOBIN 32.2 PG (27.0-34.0); MEAN CORPUSCULAR HGB CONC 33.3 % (32.0-36.0); MEAN PLATELET VOLUME 9.4 FL (7.0-11.0); MONO % 7.5 % (0.0-8.0); MONOCYTE # 0.5 TH/MM3 (0-0.9); NEUT % 77.4 % (16.0-70.0); PLATELET COUNT 173 TH/MM3 (150-450); RED BLOOD COUNT 4.41 MIL/MM3 (4.50-5.90); RED CELL DISTRIBUTION WIDTH 14.4 % (11.6-17.2); WHITE BLOOD COUNT 7.3 TH/MM3 (4.0-11.0)
--- NOTE | 2017-03-21 12:31 | HHI.PR ---
Review/Management Diagnosis 1. Breakthrough seizure. 2. History of seizure disorder since childhood, currently on no anti-seizure medication. Plan - Stable neurologic exam, non focal No acute abnormality in the neurologic investigations I explained to the patient that he needs to be on joint terminal attack controller seizure medication Dilantin would not be the choice at this time Keppra 500mg Q12h Seizure precautions Discussed case with attending physician and RN Patient tried to call his mother several times in order for me to speak with her and discuss plan of care, but no avail. Diagnosis/Plan: Subjective Subjective Comments No acute events reported No reported seizure activity Head CT scan is unremarkable EEG with no evidence of an ictal activity Patient denies any complaints, slept well No family at bed side Active Medications Current Medications Medications (Trade) Dose Ordered Sig/Qu[place]cy Route Start Time Stop Time Status Last Admin Sodium Chloride 1,000 ml @ 100 mls/hr Q10H IV 03/20/17 16:03 03/21/17 05:50 (NS Flush) 2 ml UNSCH PRN IV FLUSH 03/20/17 16:15 (NS Flush) 2 ml BID IV FLUSH 03/20/17 21:00 03/20/17 21:00 (Narcan Inj) 0.4 mg UNSCH PRN IV PUSH 03/20/17 16:15 (Ativan Inj) 1 mg Q15M PRN IV PUSH 03/20/17 16:15 (Dilantin) 100 mg Q8HR PO 03/20/17 22:00 03/21/17 05:49 Allergies Allergies Coded Allergies No Known Allergies (Unverified Allergy, Unknown, 03/20/17) Review of Systems All other ROS: ROS reviewed as documented in chart Exam I&O / VS Vital Signs Date Time Temp Pulse Resp B/P (MAP) Pulse Ox O2 Delivery O2 Flow Rate FiO2 03/21/17 12:00 98.2 68 16 109/62 (78) 95 03/21/17 08:00 97.7 65 18 110/60 (77) 99 03/21/17 04:00 98.4 66 16 122/64 (83) 98 03/21/17 02:24 64 03/21/17 00:00 98.3 66 16 114/61 (78) 97 03/20/17 19:00 98.4 61 16 129/60 (83) 97 03/20/17 18:23 03/20/17 17:30 71 15 131/83 (99) 98 Room Air 03/20/17 15:27 77 16 134/85 (101) 98 Room Air 03/20/17 13:23 99 Room Air 03/20/17 13:21 97.7 72 16 131/87 (102) 99 Room Air General: Alert and Oriented, No acute distress Eye: PERRL, EOMI, Normal conjuctiva Respiratory: Lungs CTA, Non-labored respirations Cardiology: Normal rate, No murmur Neurologic: Alert, Oriented, Normal sensory, Normal motor, No focal defects, CN II-XII intact, Normal DTR's Psychiatric: Cooperative, Appropriate mood & affect Objective Radiology Results Last [address] 03/20/17 1321 Signed Impressions: Service Date/Time: Monday, March 20, 2017 14:49 - CONCLUSION: No acute disease. Maurizio Guaman MD Micro and Labs Laboratory Tests Test 03/20/17 13:30 White Blood Count 8.0 Red Blood Count 4.73 Hemoglobin 15.4 Hematocrit 48.1 Mean Corpuscular Volume 101.8 Mean Corpuscular Hemoglobin 32.6 Mean Corpuscular Hemoglobin Concent 32.0 Red Cell Distribution Width 14.8 Platelet Count 200 Mean Platelet Volume 9.8 Neutrophils (%) (Auto) 53.9 Lymphocytes (%) (Auto) 33.9 Monocytes (%) (Auto) 11.3 Eosinophils (%) (Auto) 0.5 Basophils (%) (Auto) 0.4 Neutrophils # (Auto) 4.3 Lymphocytes # (Auto) 2.7 Monocytes # (Auto) 0.9 Eosinophils # (Auto) 0.0 Basophils # (Auto) 0.0 CBC Comment DIFF FINAL Differential Comment Blood Urea Nitrogen 9 Creatinine 1.24 Random Glucose 110 Calcium Level 10.6 Sodium Level 144 Potassium Level 3.6 Chloride Level 108 Carbon Dioxide Level 14.9 Anion Gap 21 Estimat Glomerular Filtration Rate 89 Urine Opiates Screen NEG Urine Barbiturates Screen NEG Urine Amphetamines Screen NEG Urine Benzodiazepines Screen NEG Urine Cocaine Screen NEG Urine Cannabinoids Screen POS Ethyl Alcohol Level LESS THAN 3 Yohan Schneider MD Mar 21, 2017 12:31
[2017-03-21] MEDS ORDERED: OXCA150T PO ×2 (12:44)
--- NOTE | 2017-03-21 12:45 | HHI.DCPOC ---
Discharge Care Plan Diagnosis: (1) Seizure Goals to Promote Your Health * To prevent worsening of your condition and complications * To maintain your health at the optimal level Directions to Meet Your Goals Take your medications as prescribed Follow your dietary instruction Follow activity as directed Keep your appointments as scheduled Take your immunizations and boosters as scheduled If your symptoms worsen call your PCP, if no PCP go to Urgent Care Center or Emergency Room Smoking is Dangerous to Your Health. Avoid second hand smoke Call the 24-hour hour crisis hotline for domestic abuse at Sendy Sahu MD Mar 21, 2017 12:45
--- NOTE | 2017-03-21 12:45 | HHI.DCPOC ---
Discharge Care Plan Diagnosis: (1) Seizure Goals to Promote Your Health * To prevent worsening of your condition and complications * To maintain your health at the optimal level Directions to Meet Your Goals Take your medications as prescribed Follow your dietary instruction Follow activity as directed Keep your appointments as scheduled Take your immunizations and boosters as scheduled If your symptoms worsen call your PCP, if no PCP go to Urgent Care Center or Emergency Room Smoking is Dangerous to Your Health. Avoid second hand smoke Call the 24-hour hour crisis hotline for domestic abuse at Sendy Sahu MD Mar 21, 2017 12:45
--- NOTE | 2017-03-21 12:45 | HHI.DCPOC ---
Discharge Care Plan Diagnosis: (1) Seizure Goals to Promote Your Health * To prevent worsening of your condition and complications * To maintain your health at the optimal level Directions to Meet Your Goals Take your medications as prescribed Follow your dietary instruction Follow activity as directed Keep your appointments as scheduled Take your immunizations and boosters as scheduled If your symptoms worsen call your PCP, if no PCP go to Urgent Care Center or Emergency Room Smoking is Dangerous to Your Health. Avoid second hand smoke Call the 24-hour hour crisis hotline for domestic abuse at Sendy Sahu MD Mar 21, 2017 12:45
[2017-03-21] MEDS ORDERED: LEVE500 PO ×2 (12:56)
[2017-03-21] MEDS ORDERED: levETIRAcetam 500 MG TAB PO SCH ×2 (13:00)
[2017-03-21 13:11] LABS: ALBUMIN 3.4 GM/DL (3.4-5.0); ALKALINE PHOSPHATASE 70 U/L (45-117); ALT (GPT) 18 U/L (12-78); AST (GOT) 24 U/L (15-37); BICARBONATE 27.1 MEQ/L (21.0-32.0); BLOOD UREA NITROGEN 8 MG/DL (7-18); CALCIUM 8.7 MG/DL (8.5-10.1); CHLORIDE 105 MEQ/L (98-107); GLOMERULAR FILTRATION RATE 114 ML/MIN (>89); GLUCOSE,RANDOM 108 MG/DL (74-106); PHENYTOIN (DILANTIN) 13.9 MCG/ML (10.0-20.0); SODIUM (NA) 139 MEQ/L (136-145); TOTAL BILIRUBIN ADULT 0.5 MG/DL (0.2-1.0); TOTAL PROTEIN 6.5 GM/DL (6.4-8.2)
--- NOTE | 2017-03-22 08:54 | EKG ---
Date Performed: 03/20/2017 Time Performed: 13:34:07 PTAGE: 21 years EKG: Sinus rhythm POSSIBLE RIGHT ATRIAL ENLARGEMENT POSSIBLE LEFT ATRIAL ENLARGEMENT NONSPECIFIC T-WAVE ABNORMALITY Co mpared to prior tracing no significant change BORDERLINE ECG PREVIOUS TRACING : 02/09/17 @ 1421 DOCTOR: Ravindra Barr Interpretating Date/Time 03/22/2017 08:53:13
== END 2017-03-21 16:15 | disposition home or self-care (01) | DRG 101 ==
LOC: NEPC 13:10 → NEDA 16:03 → OBSVTOIN 16:03 → N05B 18:27
PROVIDERS: ADMIT Family Medicine; ATTEND Family Medicine
DX: G40.909 Epilepsy, unspecified, not intractable, without status epilepticus (principal)
CPT/HCPCS: 70450; 80048; 80053; 80185; 80307; 85025; 93005; 95819; J2060; J7030; Q2009

== ENCOUNTER 2017-08-07 00:54 | Emergency (ER) | payer SELFPAY ==
[~2017-08-07] VITALS: Ht 193 cm; Wt 80.0 kg
[~2017-08-07 00:54] MED LIST changes: +LEVE500 PO; -OXCA150T PO
[2017-08-07 01:00] VITALS: BP 124/69; PULSE 59; RESP 18; TEMP 97.6; O2SAT 99
--- NOTE | 2017-08-07 04:07 | PD ---
HPI Chief Complaint: Laceration/Skin Injury Time Seen by Provider: 03:30 Travel History International Travel<30 days: No Contact w/Intl Traveler<30days: No Traveled to known affect area: No History of Present Illness HPI 21-year-old black male presents emergency department for evaluation of a lip laceration which he sustained this evening around 10:00 playing basketball. He states that he was accidentally elbowed in the mouth. He denies syncope. No dental injury. Pain is mild. Up-to-date with immunizations. Worsened by trauma. No alleviating factor. PFSH Past Medical History Medical History: Denies Significant Hx Cancer: No Cardiovascular Problems: No Diminished Hearing: No Endocrine: No Genitourinary: No Immune Disorder: No Musculoskeletal: No Psychiatric: No Reproductive: No Respiratory: No Immunizations Current: Yes Seizures: Yes Tetanus Vaccination: < 5 Years Influenza Vaccination: No Past Surgical History Surgical History: No Previous Surgery Social History Alcohol Use: No Tobacco Use: No Substance Use: Yes Allergies-Medications (Allergen,Severity, Reaction): Coded Allergies: No Known Allergies (Unverified Allergy, Unknown, 08/07/17) Reported Meds & Prescriptions Reported Meds & Active Scripts Active Keppra (Levetiracetam) 500 Mg Tab 500 Mg PO BID Review of Systems Except as stated in HPI: all other systems reviewed are Neg Physical Exam Narrative GENERAL: Well-developed, well-nourished in no apparent distress. Nontoxic appearing. HEAD: Normocephalic, 1 cm laceration to left upper lip with some mild swelling. There is abrasions to the buccal mucosa and wet Tam of the lip. No through and through injury. EYES: Pupils equal round and reactive. Extraocular motions intact. No scleral icterus. No injection or drainage. ENT: Nose clear. Throat without erythema, tonsillar hypertrophy or exudate. Uvula midline. Airway patent. No dental injury or malocclusion. NECK: Trachea midline. Supple, nontender, moves head freely. No central bony tenderness or spasm. CARDIOVASCULAR: Regular rate and rhythm without murmurs, gallops, or rubs. RESPIRATORY: Clear to auscultation. Breath sounds equal bilaterally. No wheezes , rales, or rhonchi. GASTROINTESTINAL: Abdomen soft, non-tender, nondistended. No hepato-splenomegaly , or palpable masses. No guarding. EXTREMITIES: No clubbing, cyanosis, or edema. No joint tenderness. BACK: Nontender without deformity. No flank tenderness. NEUROLOGICAL: Awake, alert and oriented x 3 .Cranial nerves grossly intact. Motor and sensory grossly within normal limits. Normal speech. Data Data Last Documented VS Vital Signs Date Time Temp Pulse Resp B/P (MAP) Pulse Ox O2 Delivery O2 Flow Rate FiO2 08/07/17 01:00 97.6 59 18 124/69 (87) 99 Orders Orders Ed Discharge Order (08/07/17 04:02) MDM Medical Decision Making Medical Screen Exam Complete: Yes Emergency Medical Condition: Yes Medical Record Reviewed: Yes Differential Diagnosis MDM: High Differential diagnoses: Fracture, sprain, strain, dislocation, contusion, neurovascular injury Narrative Course Patient's wound is cleansed and closed with Dermabond. Procedures Procedure Narrative LACERATION LOCATION: Upper lip centrally in mustache LENGTH: 1 cm NUMBER OF STITCHES/TELLO: Not applicable REPAIR: The area of the laceration was prepped with Betadine and sterilely draped. the wound was copiously irrigated and explored without evidence of foreign body, tendon injury or neurovascular injury. The wound was closed using Dermabond. This was a simple single layer repair. The patient was advised to keep the dressing clean and dry. Patient tolerated the procedure well. Diagnosis Primary Impression: Upper lip laceration Additional Impression: Facial contusion Patient Instructions: General Instructions Additional Instructions: Rest. Ice pack tonight. Tylenol or Advil for pain. Dermabond instructions. Saltwater gargles 3 times daily.. Sunscreen and mederma for 6 months. Return to the ER for any problems. Med/Other Pt SpecificInfo: No Meds Exist/No RX given, Wound Care Disposition: 01 DISCHARGE HOME Condition: Stable Aníbal Monae Aug 07, 2017 04:07
== END 2017-08-07 04:42 | disposition home or self-care (01) ==
LOC: NEPD 00:54
DX: S01.511A Laceration without foreign body of lip, initial encounter (principal); S00.531A Contusion of lip, initial encounter; W51.XXXA Accidental striking against or bumped into by another person, initial encounter; Y93.67 Activity, basketball
CPT/HCPCS: 12011